=== PATIENT | male | born 1945 | race Caucasian/White ===

== ENCOUNTER → 2018-03-11 | Emergency (ER) | payer OTHER ==
[2018-03-11] MEDS: predniSONE 20 MG TAB PO (17:07)
[2018-03-11] MEDS: KETOROLAC 15 MG INJ IM (17:07)
== END | disposition home or self-care (01) ==
LOC: FTE 16:31
DX: M25.551 Pain in right hip (principal); Z96.641 Presence of right artificial hip joint
CPT/HCPCS: 73502; 73510; 96372; 99284-25

== ENCOUNTER 2018-03-25 13:27 | Emergency (ER) | payer OTHER ==
[2018-03-25] MEDS: KETOROLAC 30 MG INJ IM (14:11)
== END 2018-03-25 16:02 | disposition home or self-care (01) ==
LOC: FTE 13:27
DX: M25.551 Pain in right hip (principal); Z79.01 Long term (current) use of anticoagulants
CPT/HCPCS: 96372; 99284-25; J1885